=== PATIENT | male | born 1985 | race Hispanic/Latino ===

== ENCOUNTER 2019-01-07 13:02 | Emergency (ER) | payer SELFPAY ==
[~2019-01-07 13:02] MED LIST: TRAM-355 PO
[2019-01-07 14:29] LABS: APPEARANCE,URINE Clear (CLEAR); BILIRUBIN,URINE Negative (NEGATIVE); COLOR,URINE Yellow (YELLOW); GLUCOSE, URINE (UA) Negative (NEGATIVE); KETONES,URINE Negative (NEGATIVE); LEUKOCYTE ESTERASE ,URINE Negative (NEGATIVE); NITRATE,URINE Negative (NEGATIVE); OCCULT BLOOD,URINE Negative (NEGATIVE); PH,URINE 6.5 (5.0-8.0); PROTEIN,URINE Negative (NEGATIVE); UROBILINOGEN,URINE 0.2 mg/dL (0.2-1.0)
[2019-01-07 14:55] LABS: BASOPHILS % (AUTO) 0.4 % (0.0-5.0); EOSINOPHILS % (AUTO) 2.9 % (0.0-8.0); HEMATOCRIT 40.3 % (42-54); LYMPHOCYTES % (AUTO) 27.8 % (21.0-51.0); MEAN CORPUSCULAR HEMOGLOBIN 30.3 pg (27.0-33.0); MEAN CORPUSCULAR HGB CONC 33.8 g/dL (32.0-36.0); MEAN CORPUSCULAR VOLUME 89.6 fL (79-99); MONOCYTES % (AUTO) 7.6 % (3.0-13.0); NEUTROPHILS % (AUTO) 61.3 % (40.0-77.0); PLATELET COUNT (AUTO) 247 K/uL (130-400); RED CELL DISTRIBUTION WIDTH 13.9 % (11.0-15.5); WHITE BLOOD COUNT (AUTO) 9.6 K/uL (4.8-10.8)
[2019-01-07 15:06] LABS: CREATININE 0.8 mg/dL (0.5-1.5); POTASSIUM 4.1 mmol/L (3.5-5.1)
[2019-01-07 15:11] LABS: ALBUMIN 3.4 g/dL (3.5-5.0); BILIRUBIN,TOTAL 0.3 mg/dL (0.2-1.0); TOTAL PROTEIN, SERUM 7.4 g/dL (6.0-8.3)
[2019-01-07 15:18] LABS: B-TYPE NATRIURETIC PEPTIDE 30 pg/mL (0-100)
[2019-01-07] MEDS ORDERED: KETOROLAC TROMETHAMINE 30MG/ML ONE (15:49)
[2019-01-07] MEDS ORDERED: FAMOTIDINE/PF 20 MG/2 ML VIAL IV ONE (15:49)
== END 2019-01-07 16:11 | disposition home or self-care (01) ==
LOC: EDH 13:02
DX: K29.00 Acute gastritis without bleeding (principal); M25.561 Pain in right knee; M25.562 Pain in left knee; M79.10 Myalgia, unspecified site; Z72.0 Tobacco use
CPT/HCPCS: 36415; 71046; 80053; 81003; 82550; 83880; 84484; 85025; 93005; 96374; 96375; 99285; J1885; J3490

== ENCOUNTER 2021-12-14 00:57 | Inpatient (IN) | payer BC ==
[~2021-12-14] VITALS: Ht 180.3 cm; Wt 204.2 kg
[2021-12-14 01:37] LABS: BASOPHILS % (AUTO) 0.4 % (0.0-5.0); EOSINOPHILS % (AUTO) 5.4 % (0.0-8.0); HEMATOCRIT 39.8 % (42-54); LYMPHOCYTES % (AUTO) 29.9 % (21.0-51.0); MEAN CORPUSCULAR HEMOGLOBIN 29.7 pg (27.0-33.0); MEAN CORPUSCULAR HGB CONC 32.7 g/dL (32.0-36.0); MEAN CORPUSCULAR VOLUME 90.9 fL (79-99); MONOCYTES % (AUTO) 6.8 % (3.0-13.0); NEUTROPHILS % (AUTO) 56.4 % (40.0-77.0); PLATELET COUNT (AUTO) 252 K/uL (130-400); RED BLOOD CELL COUNT(AUTO) 4.38 MIL/uL (4.50-6.20); RED CELL DISTRIBUTION WIDTH 13.4 % (11.0-15.5); WHITE BLOOD COUNT (AUTO) 10.2 K/uL (4.8-10.8)
[2021-12-14 01:40] LABS: APPEARANCE,URINE CLEAR (CLEAR); BILIRUBIN,URINE NEGATIVE (NEGATIVE); COLOR,URINE YELLOW (YELLOW); GLUCOSE, URINE (UA) NEGATIVE (NEGATIVE); KETONES,URINE NEGATIVE (NEGATIVE); LEUKOCYTE ESTERASE ,URINE NEGATIVE (NEGATIVE); NITRATE,URINE NEGATIVE (NEGATIVE); OCCULT BLOOD,URINE NEGATIVE (NEGATIVE); PROTEIN,URINE NEGATIVE (NEGATIVE); UROBILINOGEN,URINE 0.2 mg/dL (0.2-1.0)
[2021-12-14 01:57] LABS: B-TYPE NATRIURETIC PEPTIDE 19 pg/mL (0-100)
[2021-12-14 01:59] LABS: CREATININE 0.8 mg/dL (0.5-1.5)
[2021-12-14 02:03] LABS: ALBUMIN 3.3 g/dL (3.5-5.0); TOTAL PROTEIN, SERUM 6.9 g/dL (6.0-8.3)
[2021-12-14 02:33] LABS: AMPHET/METH SCREEN,URINE NEGATIVE (NEGATIVE); BARBITURATE SCREEN, URINE NEGATIVE (NEGATIVE); BENZODIAZEPINES SCREEN,URINE NEGATIVE (NEGATIVE); CANNABINOID SCREEN,URINE NEGATIVE (NEGATIVE); COCAINE SCREEN,URINE NEGATIVE (NEGATIVE); PHENCYCLIDINE SCREEN,URINE NEGATIVE (NEGATIVE)
[2021-12-14 02:57] LABS: ABG BASE EXCESS -2.3 mmol/L (-2.0-3.0); ABG PCO2 41 mmHg (35-48)
[2021-12-14] MEDS ORDERED: ONDANSETRON 4MG INJ IV PRN (04:00)
[2021-12-14] MEDS ORDERED: MORPHINE 4 MG SYG IV PRN (04:00)
[2021-12-14] MEDS ORDERED: ACETAMINOPHEN 325 MG TAB PO PRN (04:00)
[2021-12-14] MEDS ORDERED: ZOLPIDEM TARTRATE 5 MG TAB PO PRN (04:00)
[2021-12-14] MEDS ORDERED: ASPIRIN 81MG CHEW TAB PO ONE (04:00)
[2021-12-14] MEDS ORDERED: MORPHINE 2 MG SYG IV PRN (04:00)
[2021-12-14] MEDS: NITROGLYCERIN 1GM OINT 1 INCH/1GM TD SCH ×3 (04:11→20:40)
[2021-12-14 08:00] VITALS: BP 137/80
[2021-12-14] MEDS: FAMOTIDINE 20MG VIAL IV SCH ×2 (09:32→20:39)
[2021-12-14] MEDS: ASPIRIN 81MG CHEW TAB PO SCH (09:32)
[2021-12-14] MEDS: ENOXAPARIN SODIUM 40 MG/0.4 ML SYRINGE SQ SCH (09:33)
[2021-12-14 10:25] LABS: ABG HCO3 25.9 mmol/L (21.0-28.0); ABG PCO2 47 mmHg (35-48)
[2021-12-14 11:00] VITALS: BP 138/83
[2021-12-14] MEDS: ACETAMINOPHEN 325 MG TAB PO PRN (12:43)
[2021-12-14 16:00] VITALS: BP 111/67
[2021-12-14 19:00] VITALS: BP 146/91
[2021-12-15] VITALS: BP 115/72
[2021-12-15] MEDS: NITROGLYCERIN 1GM OINT 1 INCH/1GM TD SCH ×3 (03:56→20:43)
[2021-12-15 04:00] VITALS: BP 150/81
[2021-12-15 06:25] LABS: BASOPHILS % (AUTO) 0.5 % (0.0-5.0); EOSINOPHILS % (AUTO) 3.7 % (0.0-8.0); HEMATOCRIT 40.3 % (42-54); LYMPHOCYTES % (AUTO) 27.1 % (21.0-51.0); MEAN CORPUSCULAR HEMOGLOBIN 29.3 pg (27.0-33.0); MEAN CORPUSCULAR VOLUME 91.4 fL (79-99); MONOCYTES % (AUTO) 6.2 % (3.0-13.0); NEUTROPHILS % (AUTO) 61.7 % (40.0-77.0); PLATELET COUNT (AUTO) 242 K/uL (130-400); RED BLOOD CELL COUNT(AUTO) 4.41 MIL/uL (4.50-6.20); RED CELL DISTRIBUTION WIDTH 13.6 % (11.0-15.5); WHITE BLOOD COUNT (AUTO) 10.1 K/uL (4.8-10.8)
[2021-12-15 06:38] LABS: CREATININE 0.8 mg/dL (0.5-1.5); MAGNESIUM 1.8 mg/dL (1.80-2.40); PHOSPHORUS 3.6 mg/dL (2.5-4.9); POTASSIUM 4.2 mmol/L (3.5-5.1)
[2021-12-15] MEDS ORDERED: MAGNESIUM 2GM PREMIX 50ML 50 ML IV PRN (07:00)
[2021-12-15] MEDS: ENOXAPARIN SODIUM 40 MG/0.4 ML SYRINGE SQ SCH (08:27)
[2021-12-15] MEDS: ASPIRIN 81MG CHEW TAB PO SCH (08:27)
[2021-12-15] MEDS: FAMOTIDINE 20MG VIAL IV SCH ×2 (08:27→20:43)
[2021-12-15 08:34] VITALS: BP 155/88
[2021-12-15] MEDS: ACETAMINOPHEN 325 MG TAB PO PRN (10:20)
[2021-12-15 12:21] VITALS: BP 143/90
[2021-12-15 16:48] VITALS: BP 125/86
[2021-12-15 20:00] VITALS: BP 156/80
[2021-12-16] VITALS: BP 133/82
[2021-12-16 04:00] VITALS: BP 134/79
[2021-12-16 08:00] VITALS: BP 141/91
[2021-12-16 08:20] LABS: CHOLESTEROL 143 mg/dL (<200); HDL CHOLESTEROL 32 mg/dL (29-71); LDL DIRECT 97 mg/dL (0-99); TRIGLYCERIDES 214 mg/dL (30-200)
[2021-12-16] MEDS: NITROGLYCERIN 1GM OINT 1 INCH/1GM TD SCH ×2 (08:29→11:58)
[2021-12-16] MEDS: FAMOTIDINE 20MG VIAL IV SCH (08:30)
[2021-12-16] MEDS: ASPIRIN 81MG CHEW TAB PO SCH (08:30)
[2021-12-16] MEDS: ENOXAPARIN SODIUM 40 MG/0.4 ML SYRINGE SQ SCH (08:31)
[2021-12-16 12:00] VITALS: BP 150/94
[2021-12-16] MEDS ORDERED: METO25TA6 PO (12:33)
[2021-12-16] MEDS ORDERED: ASPI-1005 PO (12:33)
[2021-12-16] MEDS ORDERED: ATOR40TA69 PO (12:33)
== END 2021-12-16 13:27 | disposition home or self-care (01) | DRG 311 ==
LOC: EDH 00:57 → EDHIP 03:43 → 4CH 07:58
PROVIDERS: ADMIT Hospitalist; ATTEND Hospitalist
DX: I24.8 Other forms of acute ischemic heart disease (principal); Z68.44 Body mass index [BMI] 60.0-69.9, adult; I10 Essential (primary) hypertension; G47.33 Obstructive sleep apnea (adult) (pediatric); F32.A Depression, unspecified; F17.200 Nicotine dependence, unspecified, uncomplicated; F41.9 Anxiety disorder, unspecified; D64.9 Anemia, unspecified; Z82.49 Family history of ischemic heart disease and other diseases of the circulatory system; Z83.3 Family history of diabetes mellitus; Z82.0 Family history of epilepsy and other diseases of the nervous system; Z82.5 Family history of asthma and other chronic lower respiratory diseases; Z82.3 Family history of stroke; E66.01 Morbid (severe) obesity due to excess calories
CPT/HCPCS: 36415; 36600; 71045; 80048; 80053; 80061; 80305; 81003; 82550; 82803; 83735; 83880; 84100; 84443; 84484; 85025; 85378; 93005; 93306; 93356; 93970; 94660; G0378; J1650; J3475; J3490